=== PATIENT | male | born 1940 | race Caucasian/White ===

== ENCOUNTER 2016-11-18 17:49 | Emergency (ER) | payer OTHER | END 2016-11-18 23:10 | disposition home or self-care (01) | LOC: ER 17:49 | DX: K59.00 Constipation, unspecified (principal); K62.89 Other specified diseases of anus and rectum; R33.9 Retention of urine, unspecified; I50.9 Heart failure, unspecified; J44.9 Chronic obstructive pulmonary disease, unspecified; Z88.8 Allergy status to other drugs, medicaments and biological substances | CPT/HCPCS: 36415; 51702; 96374; 96375; 96376; Q9963; Q9967 ==